=== PATIENT | female | born 1960 | race Caucasian/White ===

== ENCOUNTER 2017-07-29 14:21 | Outpatient (CLI) | payer BC ==
--- NOTE | 2017-07-29 15:58 | MMO ---
BILATERAL DIGITAL SCREENING MAMMOGRAMS WITH CAD COMPARISON: 07/02/2016 and 08/22/2013. FINDINGS: There are scattered fibroglandular densities. No suspicious masses, calcifications, or architectura l distortion are identified. IMPRESSION: BI-RADS Category 1: Negative. Recommend routine annual mammographic screening. POS: MATTHEW
== END 2017-07-29 14:22 | disposition home or self-care (01) ==
LOC: SCSMAMMO 14:21
PROVIDERS: ATTEND Family Medicine
DX: Z12.31 Encounter for screening mammogram for malignant neoplasm of breast (principal)
CPT/HCPCS: 77067; G0202

== ENCOUNTER 2017-12-05 14:13 | Outpatient (CLI) | payer BC ==
--- NOTE | 2017-12-05 15:45 | RAD ---
RADIOGRAPH RIGHT ANKLE 3 VIEWS: DATE: 12/05/17. TIME: 2:38 a.m. HISTORY: A 57-year-old female status post right ankle injury, initial encounter, S99.180I. COMPARISON: None. FINDINGS: There is a spiral fracture of the lateral malleolus with medial aspect at the level of the ankle mort ise, and lateral aspect posterior and superior to that. There is mild posterolateral displacement of the distal fragment by approximately 10-15% bone width, and no significant angulation. There is ove rlying lateral soft tissue contusion. Ankle mortise is symmetrical. No fracture of the medial or po sterior malleolus. Talar dome is maintained. IMPRESSION: Acute, traumatic, closed, mildly displaced Moody type B lateral malleolar fracture. POS: CARMELO
== END 2017-12-05 14:14 | disposition home or self-care (01) ==
LOC: RAD-BREN 14:13
PROVIDERS: ATTEND Nurse Practitioner Family

== ENCOUNTER 2018-08-05 09:12 | Outpatient (CLI) | payer BC | END 2018-08-05 09:13 | disposition home or self-care (01) | LOC: BICMAMMO 09:12 | PROVIDERS: ATTEND Family Medicine | DX: Z12.31 Encounter for screening mammogram for malignant neoplasm of breast (principal); Z80.3 Family history of malignant neoplasm of breast | CPT/HCPCS: 77063; 77067 ==

== ENCOUNTER 2019-08-15 13:35 | Outpatient (CLI) | payer BC | END 2019-08-15 13:36 | disposition home or self-care (01) | LOC: DTY/OP 13:35 | PROVIDERS: ATTEND Family Medicine | DX: E11.9 Type 2 diabetes mellitus without complications (principal) | CPT/HCPCS: 97802 ==

== ENCOUNTER 2019-08-26 14:16 | Emergency (ER) | payer BC ==
[2019-08-26] MEDS ORDERED: Nitroglycerin 2% Ointment 1 INCH/1 GM Packet ONE (14:39)
[2019-08-26] MEDS ORDERED: Aspirin Chewable 81 MG TAB ONE (14:39)
[2019-08-26 15:00] LABS: #Basophils 0.1 thou/uL (0.0-0.2); #Eosinphils 0.3 thou/uL (0.0-0.7); #Lymphocytes 1.8 thou/uL (1.20-3.40); #Monocytes 0.4 thou/uL (0.11-0.59); #Neutrophils 3.6 thou/uL (1.40-6.50); %Basophils 1.1 % (0.0-1.0); %Eosinophils 4.7 % (0.0-10.0); %Lymphocytes 28.9 % (21.0-51.0); %Monocytes 6.2 % (0.0-10.0); %Neutrophils 59.1 % (42.0-75.0); Hemoglobin 13.9 g/dL (12.0-16.0); Mean Corpuscular HGB CONC 31.8 g/dL (32.0-36.0); Mean Corpuscular Volume 87.8 fL (78.0-98.0); Mean Platelet Volume 9.1 fL (7.4-10.4); Platelet Count 195 thou/uL (130-400); RBC Distribution Width 12.2 % (11.5-14.5); Red Blood Cell (RBC) Count 4.97 mill/uL (4.20-5.40); White Blood Cell (WBC) Count 6.2 thou/uL (4.8-10.8)
--- NOTE | 2019-08-26 15:09 | RAD ---
EXAM: Chest PA and lateral: HISTORY: Chest pain COMPARISON: 11/16/2014 FINDINGS: Heart: Normal cardiac silhouette Aorta: Atherosclerosis of the aortic knob Pulmonary vessels: Normal Costophrenic angles: Costophrenic angles are clear. Lungs: No consolidation or masses. Pneumothorax: No pneumothorax Osseous structures: No osseous abnormalities IMPRESSION: No acute cardiopulmonary process. Atherosclerosis.
[2019-08-26 15:17] LABS: ALT (SGPT) 37 U/L (8-55); AST (SGOT) 22 U/L (5-34); Albumin 4.2 g/dL (3.5-5.0); Alkaline Phosphatase 48 U/L (40-110); Anion Gap 16 mmol/L (10-20); BUN (Urea Nitrogen) 20 mg/dL (9.8-20.1); Bilirubin, Total 0.4 mg/dL (0.2-1.2); Calc. Creatinine Clearance 0 mL/min (70-130); Calcium 9.5 mg/dL (7.8-10.44); Carbon Dioxide 24 mmol/L (22-29); Chloride 104 mmol/L (98-107); Estimated GFR-MDRD 73; Globulin 2.7 g/dL (2.4-3.5); Glucose 123 mg/dL (70-105); Lipase 32 U/L (8-78); Protein, Total 6.9 g/dL (6.0-8.3); Sodium 140 mmol/L (136-145)
[2019-08-26 18:23] LABS: Troponin I Less than 0.010 ng/mL (< 0.028)
== END 2019-08-26 18:38 | disposition home or self-care (01) ==
LOC: SCSER 14:16
DX: R00.2 Palpitations (principal); E11.9 Type 2 diabetes mellitus without complications; I10 Essential (primary) hypertension; E66.9 Obesity, unspecified; F32.9 Major depressive disorder, single episode, unspecified
CPT/HCPCS: 36415; 71046; 80053; 83690; 84484; 85025; 93005

== ENCOUNTER 2019-10-27 18:30 | Outpatient (CLI) | payer BC | END 2019-10-27 18:31 | disposition home or self-care (01) | LOC: SLEEPLAB 18:30 | PROVIDERS: ATTEND Family Medicine | DX: G47.33 Obstructive sleep apnea (adult) (pediatric) (principal); E11.9 Type 2 diabetes mellitus without complications; I10 Essential (primary) hypertension; R06.83 Snoring; F41.9 Anxiety disorder, unspecified; G47.31 Primary central sleep apnea | CPT/HCPCS: 95806 ==

== ENCOUNTER 2021-02-01 10:01 | Outpatient (CLI) | payer BC | END 2021-02-01 10:02 | disposition home or self-care (01) | LOC: SCSRAD 10:01 | PROVIDERS: ATTEND Family Medicine | DX: M25.551 Pain in right hip (principal) ==

== ENCOUNTER 2025-09-06 10:26 | Outpatient (CLI) | payer MEDICARE | END 2025-09-06 10:27 | disposition home or self-care (01) | LOC: SCSBT 10:26 | PROVIDERS: ATTEND Student in an Organized Health Care Education/Training Program | DX: Z13.820 Encounter for screening for osteoporosis (principal); Z78.0 Asymptomatic menopausal state | CPT/HCPCS: 77080 ==